=== PATIENT | male | born 1950 | race Caucasian/White ===

== ENCOUNTER 2017-04-29 13:16 | Day surgery (SDC) | payer MEDICARE, OTHER ==
--- NOTE | ~2017-04-29 | OP ---
Record Of Operation [facility] [address] [place]. [address] NAME: BETHANY DONOVAN : 50 STATUS : REG [facility] PAT#: [id number] AGE: 66 ADM/REG DATE : 04/29/17 MR#: [id number] REPORT SERV DATE: 04/29/17 DICTATED BY: Sharad GOMES DATE: 04/29/17 REPORT STATUS : Draft TRANSCRIBED BY: MODL DATE: 04/29/17 DATE OF PROCEDURE: 04/29/2017 PREOPERATIVE DIAGNOSIS: Right proximal ureteral stone with intractable pain. POSTOPERATIVE DIAGNOSIS: Right proximal ureteral stone with intractable pain. PROCEDURE: Cystoscopy, right retrograde pyelography, ureteral dilation, rigid ureteroscopy, laser lithotripsy, stone extraction, double-J stent placement. ANESTHESIA: General endotracheal. COMPLICATIONS: None. DRAINS: 7-[place] x 24 cm Contour double-J stent (on a string). BRIEF HISTORY: Vic is a 66-year-old white male with a history of stone disease, who presented earlier in the week with a 5 mm right proximal stone. I could not see it on KUB and at that time, I was not sure if it had moved into a position hidden by bone or if it was radiolucent. At any rate, he was doing well and we decided to have him follow up in 2 weeks with a KUB. He returned to the office today with two days of severe intractable pain and misery. He denied fever and chills, nausea and vomiting, but wanted to proceed with some sort of intervention. I discussed ureteroscopic options and stated that I did not know if I would be able to access the stone in the proximal ureter due to anatomic considerations. We also discussed the risks of bleeding, infection, anesthesia, injury to adjacent organs, and need for a postoperative stent. There were no unanswered questions. DESCRIPTION OF PROCEDURE: Under excellent general anesthesia, the patient was prepped and draped in a standard lithotomy position. Cystoscopy was performed with a 30-degree lens, revealed normal orifices bilaterally without evidence of stone, tumor, or other abnormality. The right orifice was fairly gaping. I inserted an 8-[place] cone-tipped catheter and performed a right retrograde pyelogram which showed obstruction in the proximal ureter with a large filling defect above the iliac crest. I suspect that this stone is radiolucent. I inserted an angled glidewire through a 5-[place] open-ended catheter past the stone into the collecting system and then alongside the wire. I initially inserted a rigid ureteroscope. I could see the stone but could not advance it any further, so I inserted the inner aspect of the 07/18 ureteral access sheath and dilated up to the level of the stone. I decided not to put the 11-[place] sheath up to that level. I reinserted the cystoscope but this appeared to be enough dilation and I could visualize the stone. It was obviously too big to remove primarily and was roach in color. I then used the holmium YAG laser with a 200 micron fiber and completely fragmented the stone into passable or extractable fragments. I removed 1 fragment for analysis but felt that going up and down this ureter especially with this continued tortuosity, would be of minimal benefit. I left the collecting system, dilutely opacified, retrofitted the wire into the cystoscope. I placed a 7-[place] x 24 cm Contour double-J stent. Since I really did not have to dilate much except for this area, I felt that I could leave the string attached, so it was left attached and after it was coiled Record Of Operation [facility] [id number] [facility] [place]. [address] NAME: BETHANY DONOVAN : 50 STATUS : REG [facility]#: [id number] AGE: 66 ADM/REG DATE : 04/29/17 MR#: [id number] REPORT SERV DATE: 04/29/17 DICTATED BY: Sharad GOMES DATE: 04/29/17 REPORT STATUS : Draft TRANSCRIBED BY: KATE DATE: 04/29/17 nicely in the renal pelvis and bladder. The string was affixed to the penis with Mastisol and Tegaderm. I plan to discharge Mr. Donovan as an outpatient with the following instructions: DISCHARGE INSTRUCTIONS: 1. Home today. 2. Pyridium 200 mg one p.o. t.i.d. p.r.n. bladder pain, #15 with three refills. 3. Percocet 5/325 one to two p.o. q.4 hours p.r.n. pain, #20. 4. He can remove his stent on Tuesday05/03/2017, early in the morning. If he has any problems, call us; if he is doing well, I would like to see him back in two to three months to review the stone analysis. PHUC/KATE Sharad Gomes M.D. / [id number] CC: Young Gamboa
[2017-04-29 14:13] LABS: BASOPHILS 0.3 %; BASOPHILS ABSOLUTE 0.03 10/3/uL (0.0-0.16); EOSINOPHILS 0.5 %; EOSINOPHILS ABSOLUTE 0.06 10/3/uL (0.0-0.53); HEMATOCRIT 43.4 % (40.0-51.0); HEMOGLOBIN 14.5 g/dL (13.6-17.8); IMMATURE GRANULOCYTES 0.3 %; IMMATURE GRANULOCYTES ABSOLUTE 0.03 10/3/uL (0.0-0.11); LYMPHOCYTES 19.2 %; LYMPHOCYTES ABSOLUTE 2.27 10/3/uL (0.67-4.30); MEAN CORPUS HGB CONC 33.4 g/dL (32.0-36.0); MEAN CORPUSCULAR VOLUME 86.8 fL (80-100); MONOCYTES 13.6 %; MONOCYTES ABSOLUTE 1.61 10/3/uL (0.21-1.20); NEUTROPHILS 66.1 %; NEUTROPHILS ABSOLUTE 7.82 10/3/uL (2.02-8.40); PLATELET COUNT 227 10/3/uL (150-400); RBC DISTRIBUTION WIDTH 14.4 % (12.0-16.0); WHITE BLOOD CELLS 11.8 10/3/uL (4.5-10.5)
[2017-04-29 14:14] LABS: MANUAL DIFF NO %
[2017-04-29 14:20] LABS: ASCORBIC ACID (UR NOT ORDER) 40 (NEG); BILIRUBIN, URINE NEGATIVE (NEG); KETONE, URINE 20 MG/DL (NEG); LEUKOCYTE ESTERASE(NOT OR NEG (NEG); WBC (NOT ORDERED) (RFLEX) 4 (0-5)
[2017-04-29 14:27] LABS: BUN (BLOOD UREA NITROGEN) 19 MG/DL (6-23); CALCIUM, SERUM 8.8 MG/DL (8.5-10.4); CHLORIDE, SERUM 102 MMOL/L (96-112); CO2 (CARBON DIOXIDE) 29 MMOL/L (24-34); CREATININE 1.51 MG/DL (0.70-1.30); GFR AFRICAN AMERICAN 55 ML/MIN (>=60); GFR NON AFRICAN AMERICAN 47 ML/MIN (>=60); GLUCOSE, SERUM 92 MG/DL (60-99); POTASSIUM, SERUM 3.9 MMOL/L (3.5-5.3); SODIUM, SERUM 137 MMOL/L (135-148)
[2017-04-29] MEDS ORDERED: MOBIC7.5 PO (14:38)
[2017-04-29] MEDS ORDERED: ULTRAM50 (14:39)
[2017-04-29] MEDS ORDERED: NORCO1 TAB (14:39)
== END 2017-04-29 19:43 | disposition home or self-care (01) ==
LOC: SDC 13:16
PROC: 0T768DZ Dilation of Right Ureter with Intraluminal Device, Via Natural or Artificial Opening Endoscopic (ICD-10-PCS; 2017-04-29)
PROC: BT1DZZZ Fluoroscopy of Right Kidney, Ureter and Bladder (ICD-10-PCS; 2017-04-29)
PROC: 0TF68ZZ Fragmentation in Right Ureter, Via Natural or Artificial Opening Endoscopic (ICD-10-PCS; principal; 2017-04-29 15:15)
DX: N20.1 Calculus of ureter (principal); M19.90 Unspecified osteoarthritis, unspecified site; G47.30 Sleep apnea, unspecified; Z87.442 Personal history of urinary calculi
CPT/HCPCS: 74420; 80048; 81001; 85025; 93005; C1758; C1769; C1874; C1894; J2405; J2710; J3010; Q9967